=== PATIENT | male | born 1955 | race Caucasian/White ===

== ENCOUNTER 2019-07-23 07:24 | Outpatient (CLI) | payer BC, SELFPAY ==
--- NOTE | 2019-07-23 07:27 | ECG_ITS ---
NAME OF STUDY: LEXISCAN SESTAMIBI STRESS TEST INDICATION: CAD, PROCEDURE: At the baseline, the EKG revealed normal sinus rhythm with frequent supraventricular ectopics/premature atrial contractions. The baseline blood pressure was 144/84 mm Hg with a heart rate of 65 beats/min. Lexiscan was infused over a period of 20 seconds. A total of 0.4 milligrams of Lexiscan was infused. The stress phase was continued for a total of 5 minutes. Heart rate at the end of the stress phase was 75 with a blood pressure 135/79. The EKG at the peak infusion revealed no significant changes except for the disappearance of the supraventricular ectopics Sestamibi was injected 20 seconds after the Lexiscan infusion. Blood pressure at the end of the recovery phase was 136/66 with a heart rate of 81 per minute. CONCLUSION: 1. No significant EKG changes with the LexiScan infusion 2. No LexiScan induced chest pain or cardiac arrhythmia 3. Normal blood pressure and heart rate response 4. Sestamibi/sestamibi perfusion scan pending; see separate report. Electronically Signed On 07-24-2019 17:01:16 SENIOR CLINICAL DATA COORDINATOR by Ernesto Hernadez M.D. [id number]
--- NOTE | 2019-07-23 07:27 | NMCV_ITS ---
NM MIBI/MIBI Stress/Rest [id number] Stevo Covington Age: 64 Gender: M : 1955 Exam Date: 07/23/2019 08:14 Ordering Phys: Eduardo Coffman MD Technologist: JG Gupta Exam Location: [facility] Indications: Coronary artery calcification STRESS TEST Please see separate stress test report in [facility] for full findings IMAGE PROTOCOL Rest/Stress 1 Lexiscan Day Radiopharmaceutical Dose (mCi) Administration Site Administered by Rest: Tc-99m 10.6 IV JG Rahman Sestamibi Stress:Tc-99m 31.4 IV JG Gupta Sestamiketan Rest: 23-Jul-2019 60 Discovery 630 Stress: 23-Jul-2019 60 Discovery 630 0.4mg Lexiscan. Images obtained in supine and prone position. SPECT RESULTS Technical Quality: Good Raw Data Analysis: Normal Image Corrections: No attenuation or motion correction applied Summed Stress Score: 0 Summed Rest Score: 3 Summed Difference Score: 0 PERFUSION FINDINGS SPECT images demonstrate homogeneous tracer distribution throughout the myocardium. FUNCTIONAL RESULTS (calculated via Gated SPECT) Stress Image LV EF (%): 65 Stress EDV (mL):115 TID: 0.99 Stress ESV (mL):40 Rest Image LV EF (%): 65 FUNCTIONAL FINDINGS: There is normal left ventricular systolic function. IMPRESSIONS Myocardial perfusion imaging is normal and low probability for obstructive coronary artery disease. EKG segment will be documented separately. Clay Pruitt MD (Electronically Signed) Final Date: 23 July 2019 13:24 S
[2019-07-23 07:48] VITALS: BMI 35.5
[2019-07-23] MEDS: regadenoson 0.4 Mg/5 ml Syringe IVP (09:50)
[2019-07-23 10:11] VITALS: BP 139/87; PULSE 70
== END 2019-07-23 07:25 | disposition home or self-care (01) ==
LOC: CDL 07:25
PROVIDERS: Family Provider Family Medicine; Visit Provider Family Medicine
DX: I25.10 Atherosclerotic heart disease of native coronary artery without angina pectoris (principal)
CPT/HCPCS: 78452; 93017; A9500; J2785

== ENCOUNTER → 2019-09-27 08:03 | Outpatient (BNVA) | payer BC, SELFPAY | PROVIDERS: Family Provider Family Medicine; PCP Family Medicine; Visit Provider Urology | DX: N41.9 Inflammatory disease of prostate, unspecified (principal); Z12.5 Encounter for screening for malignant neoplasm of prostate; N39.9 Disorder of urinary system, unspecified | CPT/HCPCS: 81001 ==

== ENCOUNTER 2020-06-13 08:21 | Outpatient (CLI) | payer BC, SELFPAY ==
--- NOTE | 2020-06-13 08:40 | CT_ITS ---
WS: [id number] CTA THORACIC AORTA WITH AND WITHOUT CONTRAST. 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 After noncontrast imaging is performed, CT angiogram is performed during injection of Omnipaque 350; 95 mL IV.. Sagittal and c oronal reconstructions, sagittal and coronal MIP imaging is submitted. All CT scans at [facility] use at least one of these dose optimization techniques: automated exposure control; mA and/o r kV adjustment per patient size (includes targeted exams where dose is matched to clinical indicatio n); or iterative reconstruction. DLP: 1477.32 mGycm COMPARISON: 06/17/2019 Very mild dilatation of the thoracic aorta and mild atherosclerotic plaque. Maximum ascending aortic diameter is 4.4 cm which is not changed. Normal-sized descending thoracic aorta 2.7 cm. Normal size p ulmonary artery. Small amount of calcified plaque at the origins of the great vessels. Coronary artery calcification a nd mitral annular valve plane calcifications are identified. Mild enlargement of the heart chambers. No pericardial or pleural effusions. Stable mediastinal and hilar lymph nodes measuring up to 12 mm w ith no increase in size. Benign calcified nodules in the lungs from granulomatous disease. No pneumonia. No pleural effusion. Small hiatal hernia. No adrenal mass. Mild increase in thoracic kyphosis. Moderate spondylitic changes in the thoracic spine with no fractu re or bone destruction. CT/CT angio chest [id number] IMPRESSION: 1. Stable mild dilatation of the ascending thoracic aorta with a maximum diame ter 4.4 cm. 2. Mild atherosclerotic plaque within the aorta and [place] coronary arteries. 3. Small hiatal hernia. 4. No interval change since 06/17/2019.
[2020-06-13 09:01] LABS: Blood Urea Nitrogen 12 mg/dL (8-23)
[2020-06-13] MEDS: iohexol 350 mg/mL 100 mL Btl IV (09:14)
== END 2020-06-13 08:22 | disposition home or self-care (01) ==
LOC: RADWPI 08:28
PROVIDERS: PCP Family Medicine; Visit Provider Family Medicine
DX: I71.2 Thoracic aortic aneurysm, without rupture (principal); K44.9 Diaphragmatic hernia without obstruction or gangrene
CPT/HCPCS: 71275; 82565; 84520; Q9967

== ENCOUNTER 2020-07-23 12:29 | Emergency (ER) | payer MEDICARE, SELFPAY ==
[2020-07-23] VITALS (7 sets, daily range): BP systolic 129–151; BP diastolic 65–90; PULSE 83–98; RESP 16–24; TEMP 36.5–36.6; O2SAT 84–97; BMI 37.3
--- NOTE | 2020-07-23 13:09 | XRR_ITS ---
PROCEDURE INFORMATION: Exam: XR Chest, 1 View Exam date and time: 07/23/2020 1:16 PM Age: 65 years old Clinical indication: Shortness of breath; Additional info: Shortness of breath TECHNIQUE: Imaging protocol: XR of the chest Views: Frontal portable upright view of the chest. COMPARISON: CT angio chest [id number] 06/13/2020 9:05 AM FINDINGS: Lungs: Mild patchy bilateral pulmonary infiltrates predominating in the lateral left mid-lower lung zone and central right lung base. The pulmonary vasculature is normal. Left lower lobe calcified pulmonary parenchymal granuloma. Pleural space: No pleural effusion. No pneumothorax. Heart/Mediastinum: The heart is normal in size and contour. Mediastinum: Stable. Vasculature: Mild aortic arch atherosclerotic calcification without ectasia. Bones/joints: Stable. XR/XR chest 1V portable [id number] IMPRESSION: Mild patchy bilateral pulmonary infiltrates. Pneumonitis is difficult to exclude. Clinical correlation is recommended.
[2020-07-23 13:59] LABS: Basophils % 0.3 %; Eosinophils % 0.2 %; Hematocrit 49.1 % (42.0-52.0); Hemoglobin 16.4 g/dL (11.7-16.6); Lymphocytes # 0.6 10^3/uL (0.8-4.8); Lymphocytes % 9.7 %; Mean Corpuscular HGB Conc 33.4 g/dL (30.0-36.0); Mean Corpuscular Hemoglobin 31.8 pg (28.0-34.0); Mean Corpuscular Volume 95.2 fL (80-94); Mean Platelet Volume 11.3 fL (7.4-10.4); Monocytes # 0.3 10^3/uL (0.2-0.9); Monocytes % 4.3 %; Neutrophils # 5.32 10^3/uL (1.8-7.7); Nucleated Red Blood Cells % 0 %; Platelet Count 161 10^3/cmm (130-400); Red Blood Count 5.16 10^6/uL (4.1-5.3); Red Cell Distribution Width 13.5 % (12.1-15.1); White Blood Count 6.3 10^3/uL (4.0-10.0)
--- NOTE | 2020-07-23 14:13 | ED_ITS ---
HPI - SOB/Dyspnea General: Chief Complaint: Shortness of Breath/Dyspnea Stated Complaint: SOB/ Weakness/Back pain Time Seen by Provider: 07/23/20 13:09 Source: patient, family and old records reviewed Mode of arrival: ambulatory History of Present Illness: HPI Narrative: 65-year-old male presenting with complaints of progressive shortness of breath, dyspnea on exertion, and back pain over the past several days. He has been sick with COVID-19 since 07/10/2020, but has started to feel better up until several days ago. He had been taking oral steroids, which she thinks helped, and once he finished them, his symptoms got worse again. He has frequent dry cough, pain with deep inspiration. He is no longer having fevers. No nausea or vomiting. He does have a history of asthma/COPD. He is not on home oxygen. He has been using albuterol breathing treatments several times daily with little improvement. MD elicited complaint: shortness of breath, cough, pain with inspiration and chest pain Pertinent past history: COPD and asthma Context: recent illness Timing: progressively worsening Severity: moderate Exacerbating factors: exertion, coughing and inspiration Associated symptoms: Reports chest congestion, diaphoresis and dizziness; Deny abdominal pain, chest pain, fever(s), hemoptysis, lightheadedness, nausea or vomiting Review of Systems General: Reports: 10 or more systems reviewed and unremarkable except in HPI and below Const: Reports: body aches, change in appetite, fatigue, malaise and diaphoresis; Denies: fever(s) or chills Eyes: Denies: change in vision, blurry vision or eye discharge ENMT: Denies: hoarseness or mouth pain Card: Denies: chest pain, irregular heart rhythm, edema, swelling of feet/ankles or lightheadedness Resp: Reports: dyspnea, non-productive cough, pain on inspiration and chest congestion; Denies: hemoptysis GI: Denies: abdominal pain, nausea, vomiting, diarrhea or constipation : Denies: difficulty urinating, dysuria or urinary frequency Musc: Reports: back pain Skin/Breast: Denies: rash, pruritus or erythema Neuro: Reports: dizziness; Denies: headache(s) Yazan/Lymph: Denies: easy bruising, easy bleeding or petechiae PFS ED PFSH: Family History Mother CAD (coronary artery disease) Father , at age 87 No problems noted. Other Hypercholesteremia Social History Smoking and tobacco status: never smoked Alcohol intake: current Alcohol intake frequency: holidays/special occasions only Marital status: Current occupational status: retired History of recent travel: Yes ([place]) Physical Exam Const: COMMON NORMALS: no acute distress, patient oriented x3 and alert GENERAL APPEARANCE: cooperative and anxious; not in distress, not lethargic and not ill appearing NUTRITIONAL APPEARANCE: obese morbidly obese ORIENTATION/CONSCIOUSNESS: Yes oriented to person and Yes oriented to place; not lethargic HENMT: COMMON NORMALS: normocephalic and atraumatic HEAD & SCALP: normocephalic and atraumatic FACE & SINUS: normal facial exam and face symmetric Eye: COMMON NORMALS: Equal, round and reactive pupils present, EOMs intact bilaterally, conjunctivae normal and no scleral icterus CONJUNCTIVA: Yes conjunctivae normal PUPIL: Yes Equal, round and reactive pupils present Lymph: LYMPHATIC: no lymphadenopathy noted Chest: COMMONS NORMALS: normal inspection of the chest Resp: COMMON NORMALS: normal respiratory effort (While at rest, laying down. ) EFFORT & INSPECTION: No able to speak in complete sentences, Yes tachypneic, Yes labored and Yes Actively coughing AUSCULTATION: crackles Cardio: COMMON NORMALS: regular rate, regular rhythm, S1 normal heart sound present and S2 normal heart sound present JUGULAR VENOUS DISTENTION: no JVD RATE: regular rate RHYTHM: regular rhythm HEART SOUNDS: S1 normal heart sound present and S2 normal heart sound present GI: COMMON NORMALS: Soft to palpation INSPECTION: No Abdominal wall edema and No Anasarca PALPATION: Yes Soft to palpation, No Tenderness to palpation present (GI), No Guarding due to palpation present (GI) and No Rigid due to palpation Extremity: GENERAL: Yes normal exam except as noted, No clubbing, No cyanosis, No deformity and No edema Neuro: COMMON NORMALS: patient oriented x3 and CN's II-XII intact bilaterally SENSORIUM/ORIENTATION: Yes alert, Yes oriented to person, Yes oriented to place and No lethargic Skin: COMMON NORMALS: no rashes or lesions noted, no wounds, turgor normal, no jaundice and no petechiae GENERAL SKIN EXAM: no rashes or lesions noted and turgor normal Course Vital Signs: Vital signs: Vital Signs Temperature 97.7 F 07/23/20 13:09 Pulse Rate 98 07/23/20 16:15 Respiratory Rate 17 07/23/20 16:15 Blood Pressure 129/65 07/23/20 16:15 Pulse Oximetry 84 L 07/23/20 17:24 MDM - SOB/Dyspnea MDM Narrative: Medical decision making narrative: 65-year-old male with Covid pneumonia, approximately 2 weeks since onset of symptoms, still having significant dyspnea. DDx :acute PE, CHF, secondary bacterial infection, respiratory failure with hypoxia, ARDS, CT negative for acute PE. CRP elevated, CBC normal. Evaluated by RT, he does qualify for home O2; 3 L nasal cannula at rest, 4 L with activity. He is already completed a course of steroids, but we will have him take Zithromax to prevent any superimposed bacterial infection. Medical Records: Attestation: I reviewed the patient's medical records. Lab Data: Attestation: I reviewed the patient's lab results. Labs: Lab Results 07/23/20 07/23/20 07/23/20 Range/Units 13:34 13:34 13:34 WBC 6.3 (4.0-10.0) 10^3/ uL RBC 5.16 (4.1-5.3) 10^6/u L Hgb 16.4 (11.7-16.6) g/dL Hct 49.1 (42.0-52.0) % MCV 95.2 H (80-94) fL MCH 31.8 (28.0-34.0) pg MCHC 33.4 (30.0-36.0) g/dL RDW 13.5 (12.1-15.1) % Plt Count 161 (130-400) 10^3/c mm MPV 11.3 H (7.4-10.4) fL Neut % (Auto) 85.0 % Lymph % (Auto) 9.7 % [place] % (Auto) 4.3 % Eos % (Auto) 0.2 % Baso % (Auto) 0.3 % Neut # (Auto) 5.32 (1.8-7.7) 10^3/u L Lymph # (Auto) 0.6 L (0.8-4.8) 10^3/u L [place] # (Auto) 0.3 (0.2-0.9) 10^3/u L Eos # (Auto) 0.0 (0.0-0.8) 10^3/u L Baso # (Auto) 0.0 (0.0-0.1) 10^3/u L Nucleated RBC % (a uto) 0 % Nucleated RBCs # 0.0 /100WBC PT 13.50 (12.1-14.9) SECO NDS INR 1.00 (0.8-1.2) D-Dimer (0-0.59) ug/mIFE U Sodium Cancelled Potassium Cancelled Chloride Cancelled Carbon Dioxide Cancelled Anion Gap Cancelled BUN Cancelled Creatinine Cancelled GFR Calculation Cancelled Glucose Cancelled Calculated Osmolal ity Cancelled Calcium Cancelled Total Bilirubin Cancelled AST Cancelled ALT Cancelled Alkaline Phosphata se Cancelled Troponin T Baselin e C-Reactive Protein Cancelled NT-Pro-B Natriuret Pep Cancelled Total Protein Cancelled Albumin Cancelled Globulin Cancelled Urine Color (Yellow) Urine Appearance (CLEAR) Urine pH (5-7) Ur Specific Gravit y (1.005-1.030) Urine Protein (Negative) Urine Glucose (UA) (Normal) Urine Ketones (Negative) Urine Blood (Negative) Urine Nitrate (Negative) Urine Bilirubin (Negative) Urine Urobilinogen (Negative) mg/dL Ur Leukocyte Carrie ase (Negative) Urine RBC (0-2) /hpf Urine WBC (0-5) /hpf Ur Squamous Epith Cells (0-5) /hpf Amorphous Sediment Urine Bacteria (NONE) /hpf Urine Mucus /hpf 07/23/20 07/23/20 07/23/20 Range/Units 13:34 13:34 14:44 WBC (4.0-10.0) 10^3/ uL RBC (4.1-5.3) 10^6/u L Hgb (11.7-16.6) g/dL Hct (42.0-52.0) % MCV (80-94) fL MCH (28.0-34.0) pg MCHC (30.0-36.0) g/dL RDW (12.1-15.1) % Plt Count (130-400) 10^3/c mm MPV (7.4-10.4) fL Neut % (Auto) % Lymph % (Auto) % [place] % (Auto) % Eos % (Auto) % Baso % (Auto) % Neut # (Auto) (1.8-7.7) 10^3/u L Lymph # (Auto) (0.8-4.8) 10^3/u L [place] # (Auto) (0.2-0.9) 10^3/u L Eos # (Auto) (0.0-0.8) 10^3/u L Baso # (Auto) (0.0-0.1) 10^3/u L Nucleated RBC % (a uto) % Nucleated RBCs # /100WBC PT (12.1-14.9) SECO NDS INR (0.8-1.2) D-Dimer 1.84 H (0-0.59) ug/mIFE U Sodium Potassium Chloride Carbon Dioxide Anion Gap BUN Creatinine GFR Calculation Glucose Calculated Osmolal ity Calcium Total Bilirubin AST ALT Alkaline Phosphata se Troponin T Baselin e Cancelled 24 H C-Reactive Protein NT-Pro-B Natriuret Pep Total Protein Albumin Globulin Urine Color (Yellow) Urine Appearance (CLEAR) Urine pH (5-7) Ur Specific Gravit y (1.005-1.030) Urine Protein (Negative) Urine Glucose (UA) (Normal) Urine Ketones (Negative) Urine Blood (Negative) Urine Nitrate (Negative) Urine Bilirubin (Negative) Urine Urobilinogen (Negative) mg/dL Ur Leukocyte Carrie ase (Negative) Urine RBC (0-2) /hpf Urine WBC (0-5) /hpf Ur Squamous Epith Cells (0-5) /hpf Amorphous Sediment Urine Bacteria (NONE) /hpf Urine Mucus /hpf 07/23/20 07/23/20 Range/Units 14:44 14:55 WBC (4.0-10.0) 10^3/ uL RBC (4.1-5.3) 10^6/u L Hgb (11.7-16.6) g/dL Hct (42.0-52.0) % MCV (80-94) fL MCH (28.0-34.0) pg MCHC (30.0-36.0) g/dL RDW (12.1-15.1) % Plt Count (130-400) 10^3/c mm MPV (7.4-10.4) fL Neut % (Auto) % Lymph % (Auto) % [place] % (Auto) % Eos % (Auto) % Baso % (Auto) % Neut # (Auto) (1.8-7.7) 10^3/u L Lymph # (Auto) (0.8-4.8) 10^3/u L [place] # (Auto) (0.2-0.9) 10^3/u L Eos # (Auto) (0.0-0.8) 10^3/u L Baso # (Auto) (0.0-0.1) 10^3/u L Nucleated RBC % (a uto) % Nucleated RBCs # /100WBC PT (12.1-14.9) SECO NDS INR (0.8-1.2) D-Dimer (0-0.59) ug/mIFE U Sodium 134 L Potassium 3.8 Chloride 100 Carbon Dioxide 21 L Anion Gap 16.8 BUN 17 Creatinine 0.9 GFR Calculation 84.7 L Glucose 93 Calculated Osmolal ity 279 L Calcium 8.4 L Total Bilirubin 0.6 AST 26 ALT 29 Alkaline Phosphata se 85 Troponin T Baselin e C-Reactive Protein 62.1 H NT-Pro-B Natriuret Pep 150 H Total Protein 6.4 L Albumin 3.6 Globulin 2.8 Urine Color Yellow (Yellow) Urine Appearance Clear (CLEAR) Urine pH 7 (5-7) Ur Specific Gravit y 1.010 (1.005-1.030) Urine Protein Neg (Negative) Urine Glucose (UA) Norm (Normal) Urine Ketones Negative (Negative) Urine Blood Neg (Negative) Urine Nitrate Negative (Negative) Urine Bilirubin Neg (Negative) Urine Urobilinogen 4 H (Negative) mg/dL Ur Leukocyte Carrie ase Negative (Negative) Urine RBC None (0-2) /hpf Urine WBC None (0-5) /hpf Ur Squamous Epith Cells Rare (0-5) /hpf Amorphous Sediment Not Reportable Urine Bacteria Trace (NONE) /hpf Urine Mucus 2+ /hpf Discharge Plan Discharge Patient Disposition: Home Clinical Impression: Pneumonia due to 2019 novel coronavirus, Hypoxemia requiring supplemental oxygen Condition: Stable Prescriptions: New Zithromax Z-Nicanor 250 mg tablet See Rx Instructions .ROUTE .COMPLEX Qty: 6 RF: 0 No Action multivitamin Tablet 1 tab PO DAILY RF: 0 aspirin 81 mg tablet,delayed release (DR/EC) 81 mg PO DAILY RF: 0 quercetin 1,000 mg PO DAILY RF: 0 cetirizine 10 mg capsule 10 mg PO DAILY RF: 0 montelukast [Singulair] 10 mg tablet 10 mg PO DAILY RF: 0 amlodipine 10 mg tablet 10 mg PO DAILY RF: 0 atorvastatin 10 mg tablet 10 mg PO DAILY RF: 0 fluticasone propion-salmeterol [Advair Diskus] 250-50 mcg/dose blister with device 1 inh INHALATION BID RF: 0 monetasone 1 mg nasal BID RF: 0 Discharge Orders: Discharge ED (Routine); Ordered 07/23/20 Ordered By: Minoo Erickson Other Ambulatory Orders: DME: Oxygen (Order) Location: None Selected Ordered By: Minoo Erickson Referrals: Eduardo Coffman Jr, MD [Primary Care Provider] - Discharge Diet: Usual diet Discharge Activity: Increase activity as tolerated and Oxygen as instructed Patient Instructions: Using Oxygen at Home (ED) Activity Restrictions/Additional Instructions: Follow-up with your primary care doctor in the next 3 days. Avoid any unneces alexandre exertion. Rest. Drink plenty of fluids. Return immediately to the ER if you develop worsening difficulty breathing, severe chest pain, dizziness or fainting, or any other concerning symptoms. Coding Level of Care Code ED Silk Folder for Bro Love
[2020-07-23 14:37] LABS: D Dimer 1.84 ug/mIFEU (0-0.59)
--- NOTE | 2020-07-23 14:44 | CTR_ITS ---
PROCEDURE INFORMATION: Exam: CT Angiography Chest With Contrast Exam date and time: 07/23/2020 3:31 PM Age: 65 years old Clinical indication: Shortness of breath; Additional info: SOB, back pain, covid TECHNIQUE: Imaging protocol: Computed tomographic angiography of the chest with intravenous contrast. 3D rendering (Not supervised by radiologist): MIP reconstructed images were created by the technologist. Radiation optimization: All CT scans at this facility use at least one of these dose optimization techniques: automated exposure control; mA and/or kV adjustment per patient size (includes targeted exams where dose is matched to clinical indication); or iterative reconstruction. Contrast material: OMNI 350; Contrast volume: 95 ml; Contrast route: INTRAVENOUS (IV); COMPARISON: CT angio chest [id number] 06/13/2020 9:05 AM RADIATION DOSE METRICS: Total DLP (mGy-cm): 609.1 FINDINGS: Pulmonary arteries: Normal. No pulmonary emboli. Aorta: Moderate aortic arch, branch, and descending thoracic aortic atherosclerotic calcification without ectasia. Thyroid: The partially imaged bilateral thyroid lobes are unremarkable. Lungs: Patchy peripheral rounded and non-rounded pulmonary ground-glass opacities with intralobular septal thickening predominating in the mid-lower lung zones. Right lower lobe calcified pulmonary parenchymal granulomas. Pleural space: No pneumothorax. No pleural effusion. Heart: Dense mitral annular calcification is present. Lymph nodes: Left pulmonary hilar lymph node measuring 17 mm short axis. Subcarinal lymph node measuring 15.3 mm short axis. Right pulmonary hilar lymph node measuring 14.7 mm short axis. Retrocaval/pretracheal lymph node measuring 14.4 mm short axis. Bones/joints: Thoracic spine vertebral body marginal osteophytes are noted at multiple levels. Degenerative disk disease is present at mid-lower thoracic spine disk levels. Soft tissues: Unremarkable. CT/CT angio chest PE protcl [id number] IMPRESSION: 1. Commonly reported imaging features of COVID-19 pneumonia are present. Other processes such as influenza pneumonia and organizing pneumonia, as can be seen with drug toxicity and connective tissue disease, can cause a similar imaging pattern. 2. No pulmonary embolism identified. 3. Mild nonspecific mediastinal and bilateral pulmonary hilar lymphadenopathy. Radiation Dose CTDIVOL = (mGy): DLP = 609.1 (mGy-cm)
[2020-07-23 15:11] LABS: Troponin(5th) Baseline 24 ng/L (0-15)
[2020-07-23 15:16] LABS: Alanine Aminotransferase 29 U/L (0-41); Albumin Level 3.6 g/dL (3.5-5.2); Alkaline Phosphatase 85 IU/L (40-130); Anion Gap 16.8 (5-19); Aspartate Amino Transferase 26 U/L (0-40); Blood Urea Nitrogen 17 mg/dL (8-23); C Reactive Protein 62.1 mg/L (0.0-4.9); Calcium 8.4 mg/dL (8.5-10.5); Carbon Dioxide 21 mmol/L (22-29); Chloride 100 mmol/L (98-107); Globulin 2.8 g/dL (1.3-4.6); Glomerular Filtration Rate 84.7 mL/min (90-130); Glucose 93 mg/dL (65-115); NT Pro B Type Natriuretic Pept 150 pg/mL (0-125); Osmolality Calculated 279 mOsm/kg (285-295); Potassium 3.8 mmol/L (3.5-5.1); Sodium 134 mmol/L (136-145); Total Bilirubin 0.6 mg/dL (0.15-1.2); Total Protein 6.4 g/dL (6.6-8.7)
[2020-07-23 15:32] LABS: Glucose Urine UA Norm (Normal); Protein Urine Neg (Negative); Urine Appearance Clear (CLEAR); Urine Color Yellow (Yellow); pH Urine 7 (5-7)
[2020-07-23 15:33] LABS: Bilirubin Urine Neg (Negative); Blood Urine Neg (Negative); Ketones Urine Negative (Negative); Leukocyte Esterase Urine Negative (Negative); Nitrate Urine Negative (Negative); Urobilinogen Urine 4 mg/dL (Negative)
[2020-07-23 15:35] LABS: Bacteria Urine TRACE /hpf; Mucus Urine 2+ /hpf; Squamous Epithelial Cell Urine RARE /hpf (0-5)
[2020-07-23 15:36] LABS: Add Urine Culture? No
[2020-07-23] MEDS: iohexol 350 mg/mL 100 mL Btl IV (16:04)
--- NOTE | 2020-07-23 19:12 | ECG_ITS ---
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 Measurements Intervals [place] Rate: 83 P: 15 MD: 138 QRS: -21 QRSD: 90 T: 7 QT: 342 QTc: 404 Interpretive Statements SINUS RHYTHM POSSIBLE LEFT ATRIAL ENLARGEMENT [-0.1mV P WAVE IN V1/V2] BORDERLINE LEFT AXIS DEVIATION [QRS AXIS < -20] POSSIBLE RIGHT VENTRICULAR CONDUCTION DELAY [RSR (QR) IN V1/V2] Compared to ECG 03/18/2018 23:28:52 Sinus tachycardia no longer present Incomplete right bundle-branch block no longer present Electronically Signed On 07-24-2020 17:32:33 DIRECTOR INTEGRATED by Rossy Norris M.D. [id number]
== END 2020-07-23 18:56 | disposition home or self-care (01) ==
PROVIDERS: Emergency Provider Family Medicine; PCP Family Medicine
DX: U07.1 COVID-19 (principal); J12.82 Pneumonia due to coronavirus disease 2019; R09.02 Hypoxemia; Z99.81 Dependence on supplemental oxygen; Z79.82 Long term (current) use of aspirin; I70.0 Atherosclerosis of aorta
CPT/HCPCS: 12345; 71045; 71275; 80053; 81001; 83880; 84484; 85025; 85378; 85610; 86140; 93005; 99283; Q9967

== ENCOUNTER 2020-09-13 10:52 | Outpatient (CLI) | payer MEDICARE, SELFPAY ==
--- NOTE | 2020-09-13 10:15 | USCV_ITS ---
Stevo Covington Age: 65 Gender: M : 1955 Exam Date: 09/13/2020 11:07 Ordering Phys: Edu Tirado M.D ([email or web address]) Technologist: Laura Bowen Exam Location: [facility] Indication: AFIB BP: / HR: 84 Rhythm: Sinus Technical Quality: Adequate MEASUREMENTS (Male / Female) Normal Values 2D ECHO LV Diastolic Diameter PLAX 3.1 cm 4.2 - 5.9 / 3.9 - 5.3 cm LV Systolic Diameter PLAX 2.3 cm IVS Diastolic Thickness 1.3 cm 0.6 - 1.0 / 0.6 - 0.9 cm IVS Systolic Thickness 1.4 cm LVPW Diastolic Thickness 2.0 cm 0.6 - 1.0 / 0.6 - 0.9 cm LVPW Systolic Thickness 2.1 cm LVOT Diameter 2.0 cm LV Ejection Fraction 2D Teich 50.9 % LV Ejection Fraction MOD 2C 60.3 % LV Ejection Fraction 2C AL 60.2 % LA Diameter 5.0 cm LA Width 3.7 cm LA Height 5.4 cm RA Width 3.0 cm RA Height 4.5 cm Aorta at Sinotubular Diameter 3.7 cm M-MODE LV Diastolic Diameter MM 6.5 cm 4.2 - 5.9 / 3.9 - 5.3 cm LV Systolic Diameter MM 5.2 cm LV Ejection Fraction MM Teich 40.1 % IVS Diastolic Thickness MM 0.9 cm 0.6 - 1.0 / 0.6 - 0.9 cm IVS Systolic Thickness MM 1.5 cm LVPW Diastolic Thickness MM 1.3 cm 0.6 - 1.0 / 0.6 - 0.9 cm LVPW Systolic Thickness MM 1.6 cm Aortic Annulus Diameter 3.6 cm LA Ao Ratio MM 1.7 MV E Point Septal Separation 0.9 cm DOPPLER AV Peak Velocity 102.7 cm/s LVOT Peak Velocity 91.0 cm/s AV Area Cont Eq vti 2.6 cm squared AV Area Cont Eq pk 2.8 cm squared MV Area PHT 3.3 cm squared Mitral E to A Ratio 3.4 MV E' Velocity 84.0 cm/s Mitral E to MV E' Ratio 13.8 Mitral E to LV E' Lateral Ratio 11.2 Mitral E to LV E' Septal Ratio 18.3 TR Peak Velocity 252.0 cm/s TR Peak Gradient 25.4 mmHg TV Peak E Velocity 65.0 cm/s Right Atrial Pressure 3.0 mmHg Pulmonary Artery Systolic Pressu 28.4 mmHg PV Peak Velocity 45.0 cm/s RV Acceleration Time 0.2 s RV Ejection Time 0.3 s RV AcT/ET 0.5 FINDINGS Left Ventricle Normal left ventricular size. LV systolic function is normal with EF of 55-60%. No regional wall motion abnormalities. Diastolic function is indeterminate because of atrial fibrillation Right Ventricle The right ventricle is normal in size and function. Right Atrium The right atrium is normal in size. Left Atrium The left atrium is mildly enlarged Mitral Valve Structurally normal mitral valve without significant stenosis or prolapse. There is no mitral regurgitation. Aortic Valve Structurally normal aortic valve without significant sclerosis or stenosis. There is mild aortic regurgitation. Tricuspid Valve Structurally normal tricuspid valve without significant stenosis. Mild tricuspid regurgitation is seen. RVSP is 30- 35mmHg. Mild pulmonary hypertension Pulmonic Valve Structurally normal pulmonic valve without significant stenosis. There is no pulmonic regurgitation. Pericardium Normal pericardium without effusion. Aorta Mildly dilated aortic root CONCLUSIONS LV systolic function is normal with EF of 55-60% Diastolic function is indeterminate because of atrial fibrillation Left atrial enlargement Mild aortic regurgitation. Mild tricuspid regurgitation is noted Mild pulmonary hypertension Mildly dilated aortic root. No comparison studies are available Edu Tirado MD (Electronically Signed) Final Date: 19 September 2020 18:16 S
== END 2020-09-13 10:53 | disposition home or self-care (01) ==
LOC: US 10:52
PROVIDERS: PCP Family Medicine; Visit Provider Internal Medicine
DX: I48.91 Unspecified atrial fibrillation (principal); I35.1 Nonrheumatic aortic (valve) insufficiency; I07.1 Rheumatic tricuspid insufficiency; I27.20 Pulmonary hypertension, unspecified
CPT/HCPCS: 93306

== ENCOUNTER → 2020-10-12 09:47 | Outpatient (BNVA) | payer MEDICARE, SELFPAY | PROVIDERS: PCP Family Medicine; Visit Provider Internal Medicine | DX: R06.02 Shortness of breath (principal) | CPT/HCPCS: 87635 ==

== ENCOUNTER → 2020-10-30 11:42 | Outpatient (BNVA) | payer MEDICARE, SELFPAY | PROVIDERS: PCP Family Medicine; Visit Provider Internal Medicine | DX: I48.91 Unspecified atrial fibrillation (principal); Z11.52 Encounter for screening for COVID-19 | CPT/HCPCS: 87635 ==

== ENCOUNTER 2020-11-03 10:56 | Day surgery (SDC) | payer MEDICARE, SELFPAY ==
--- NOTE | 2020-11-03 07:18 | W.PM.OPSFHP ---
Same Day Surgery H&P Indication for Procedure/HPI DATE OF PROCEDURE: November 03, 2020 CHIEF COMPLAINT/INDICATIONFOR SURGICAL PROCEDURE: Atrial gibrillation PREOP DIAGNOSIS: Symptomatic A. fib PLANNED PROCEDRUE: Operation Date: 11/03/20 12:00 Proposed Procedures p CHAD 36780 R06.02(Not Applicable) - Edu Tirado M.D Patient presented for CHAD and CV. Medications/Allergies* Home Medications Medication Instructions Recorded Confirmed Type amlodipine 10 mg tablet 10 mg PO DAILY 09/27/19 11/03/20 History atorvastatin 10 mg tablet 10 mg PO DAILY 09/27/19 11/03/20 History cetirizine 10 mg capsule 10 mg PO DAILY 09/27/19 11/03/20 History fluticasone 250 mcg-salmeterol 50 1 inh INHALATION BID 09/27/19 11/03/20 History mcg/dose blistr powdr for inhalation monetasone NASAL BID 09/27/19 08/23/20 History montelukast 10 mg tablet 10 mg PO DAILY 09/27/19 11/03/20 History multivitamin 1 tab PO DAILY 09/27/19 11/03/20 History albuterol sulfate 90 mcg/actuation 2 puff INHALATION Q6H PRN 08/23/20 11/03/20 History aerosol inhaler Allergies/Adverse Reactions Allergy/AdvReac Type Severity Reaction Status Date / Time sulfamethoxazole Allergy Unknown Verified 09/27/19 07:54 [From Bactrim] trimethoprim [From Bactrim] Allergy Unknown Verified 09/27/19 07:54 Pertinent History/Comorbid Conditions* Medical History (Updated 08/26/20 @ 11:24 by Edu Tirado M.D) Arthropathy of right knee Asthma HTN (hypertension) Hyperlipidemia Lower urinary tract symptoms (LUTS) Prostatitis Ureteral calculus Surgical History (Updated 08/26/20 @ 11:19 by Edu Tirado M.D) H/O arthroscopy of right knee History of back surgery History of back surgery Hx of repair of rotator cuff S/P right rotator cuff repair MASSIVE Family History (Updated 07/23/19 @ 08:06 by Karen Colvin RN) Father, at age 87 CAD (coronary artery disease) Mother Hypercholesteremia Social History Smoking and tobacco status: never smoked Alcohol intake: current Alcohol intake frequency: holidays/special occasions only Marital status: Current occupational status: retired History of recent travel: Yes ([place]) Pertinent Exam Findings alert, oriented x 3, clear to auscultation bilaterally and regular rate & rhythm Recommendations Other (Patient was already on SB on arrival. 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
[2020-11-03 11:37] VITALS: BMI 36.6
--- NOTE | 2020-11-03 11:49 | ANES.PREANE2 ---
Documented by User: Good Mason Jr, CRNA 11/03/20 11:59 Pre-Anesthetic Assessment Pre-Anesthetic Assessment: Height/Weight: Height 1.83 m Weight 122.47 kg Preop Diagnosis: Afib Proposed Procedure: Operation Date: 11/03/20 12:00 Proposed Procedures p CHAD 28730 R06.02(Not Applicable) - Edu Tirado M.D Familial anesthetic complications: father was long time to wake and thought allergy to SUX Was Beta Federico taken within 24 hours: Yes Was Clonidine taken within 24 hours: N/A Last Intake: 22:00 Social: Social History: No alcohol and No tobacco Exam: Pre-Anes Outpt Exam: alert, oriented x 3, clear to auscultation bilaterally and regular rate & rhythm Airway: Submandibular: WNL Cervical ROM: WNL MP: 2 Dentition: Full Pulmonary: Pulmonary: Asthma and SOB (since COVID end june) CV/HEM: CV/HEM: Afib and HTN Comments: Pt with AAA thats being watched. Told OK in June 2020 : : None reported Hepatic: Hepatic: None reported GI: GI: GERD (controlled with OTC meds) Metabolic: Metabolic: Morbid obesity Musc/skel: Musc/skel: Lower Back Pain and OA/DJD Neuropsych: Neuropsych: None reported Anesthetic Plan: ASA status: 3 Anesthesia: MAC Risk of > 500 ml blood loss (7ml/kg in children): No PFSH Anesthesia PFSH: Medical History Arthropathy of right knee Asthma HTN (hypertension) Hyperlipidemia Lower urinary tract symptoms (LUTS) Prostatitis Ureteral calculus Surgical History H/O arthroscopy of right knee History of back surgery History of back surgery Hx of repair of rotator cuff S/P right rotator cuff repair MASSIVE Family History Mother CAD (coronary artery disease) Father , at age 87 No problems noted. Other Hypercholesteremia Social History Smoking and tobacco status: never smoked Alcohol intake: current Alcohol intake frequency: holidays/special occasions only Marital status: Current occupational status: retired History of recent travel: Yes ([place]) Data Anesthesia Cardiac Studies: No Data to Display Documented by User: José Miguel Zamarripa 11/03/20 16:26 PFSH Anesthesia PFSH: Medical History Arthropathy of right knee Asthma HTN (hypertension) Hyperlipidemia Lower urinary tract symptoms (LUTS) Prostatitis Ureteral calculus Surgical History H/O arthroscopy of right knee History of back surgery History of back surgery Hx of repair of rotator cuff S/P right rotator cuff repair MASSIVE Family History Mother CAD (coronary artery disease) Father , at age 87 No problems noted. Other Hypercholesteremia Social History Smoking and tobacco status: never smoked Alcohol intake: current Alcohol intake frequency: holidays/special occasions only Marital status: Current occupational status: retired History of recent travel: Yes ([place]) Data Anesthesia Cardiac Studies: No Data to Display
--- NOTE | 2020-11-03 11:55 | ECG_ITS ---
[facility] Test Date: 2020-11-03 Pat Name: Stevo Covington Department: Room: Gender: Male Traveling Auditor: : 1955 Requested By: Rossy Norris Order Number: [id number] Anita MD: Rossy Norris M.D. Measurements Intervals [place] Rate: 46 P: 4 OK: 190 QRS: -20 QRSD: 97 T: -2 QT: 469 QTc: 412 Interpretive Statements SINUS BRADYCARDIA POSSIBLE RIGHT VENTRICULAR CONDUCTION DELAY [RSR (QR) IN V1/V2] Compared to ECG 07/23/2020 13:30:30 Sinus rhythm no longer present Electronically Signed On 11-04-2020 5:18:16 CDT by Rossy Norris M.D. [id number]
--- NOTE | 2020-11-03 16:25 | ANE.PACU2 ---
Inpatient post-anesthesia follow up: Airway intact: Yes Vital signs: Temperature Pulse Rate Respiratory Rate Blood Pressure Pulse Oximetry Oxygen Delivery Me thod Oxygen Flow Rate Fraction of Inspir ed Oxygen Hydration adequate: Yes Nausea and vomiting: No Pain level: 1 Mental status: Baseline
== END 2020-11-03 12:59 | disposition home or self-care (01) ==
PROVIDERS: PCP Family Medicine; Visit Provider Internal Medicine
PROC: (CPT 93312; principal; 2020-11-03 12:00)
DX: I48.91 Unspecified atrial fibrillation (principal); I10 Essential (primary) hypertension; E78.5 Hyperlipidemia, unspecified; J45.909 Unspecified asthma, uncomplicated; Z86.16 Personal history of COVID-19; E66.01 Morbid (severe) obesity due to excess calories; Z68.36 Body mass index [BMI] 36.0-36.9, adult; M19.90 Unspecified osteoarthritis, unspecified site; Z82.49 Family history of ischemic heart disease and other diseases of the circulatory system
CPT/HCPCS: 93005

== ENCOUNTER → 2021-10-01 13:43 | Outpatient (BNVA) | payer MEDICARE, SELFPAY | PROVIDERS: PCP Family Medicine; Visit Provider Urology | DX: N41.9 Inflammatory disease of prostate, unspecified (principal); Z12.5 Encounter for screening for malignant neoplasm of prostate; N41.1 Chronic prostatitis; Z87.448 Personal history of other diseases of urinary system | CPT/HCPCS: 81003; G0103 ==

== ENCOUNTER 2021-12-31 07:54 | Outpatient (CLI) | payer MEDICARE, SELFPAY ==
--- NOTE | 2021-12-31 08:06 | CT_ITS ---
WS: [id number] CTA THORACIC TECHNIQUE: Contrast enhanced CTA of the thoracic aorta with coronal and sagittal reformatted images a nd maximum intensity projection (MIP) images. 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 FINDINGS: Stable mild dilatation of the ascending thoracic aorta measuring 4.4 cm in maximum dimension. This is unchanged from the prior examinations. Mild aortic calcification. Coronary calcification. Proximal m ain pulmonary arteries are normal. A few prominent anterior mediastinal and peribronchial lymph nodes unchanged. No axillary lymphadenopathy. Adrenal glands are normal. Small esophageal hiatal hernia. Fatty atrophy of the pancreas. Celiac and SMA are patent in the upper abdomen. Slight bibasilar atelectasis. No acute pulmonary infiltrates. A few incidental calcified granulomas. Previously described pulmonary infiltrates have resolved. Hypertrophic changes thoracic spine. Mild t horacic kyphosis. CT/CT angio chest [id number] IMPRESSION: 1. Stable mild dilatation of the ascending thoracic aorta measuring 4.4 cm unc hanged. 2. Mild aortic calcification. Mild coronary calcification. 3. Small esophageal hiatal hernia. 4. No acute pulmonary infiltrates today.
[2021-12-31] MEDS: iohexol 350 mg/mL 100 mL Btl IV (08:46)
== END 2021-12-31 07:55 | disposition home or self-care (01) ==
LOC: RAD 07:55
PROVIDERS: PCP Family Medicine; Visit Provider Nurse Practitioner Family
DX: I71.2 Thoracic aortic aneurysm, without rupture (principal); I10 Essential (primary) hypertension; I48.91 Unspecified atrial fibrillation
CPT/HCPCS: 71275

== ENCOUNTER 2022-06-12 11:22 | Outpatient (CLI) | payer MEDICARE, SELFPAY ==
--- NOTE | 2022-06-12 11:36 | XR_ITS ---
WS: [id number] XR shoulder LT min 2V* [id number] REASON FOR EXAM: STRAIN OF MUSCLE,FASCIA TENDON OF OTHER PARTS OF BICEPS FINDINGS: Moderate narrowing of the acromioclavicular joint with subchondral sclerosis and marginal osteophytos is. Difficult to evaluate the glenohumeral joint space on this examination. It appears to be mildly narro wed. There is mild subchondral sclerosis in the glenoid and small osteophytosis of the humeral head. There is fairly significant subchondral sclerosis and cystic change in the greater tuberosity of jarod delmi. No fracture or focal bone lesion of the clavicle scapula or humerus. No soft tissue abnormality. XR/XR shoulder LT min 2V* [id number] IMPRESSION: Moderate osteoarthritis of the acromioclavicular joint. Mild osteoarthritis of the glenohumeral joint. Significant rotator cuff cuff tendon arthropathy.
== END 2022-06-12 11:23 | disposition home or self-care (01) ==
PROVIDERS: PCP Nurse Practitioner Family; Visit Provider Nurse Practitioner Family
DX: S46.912A Strain of unspecified muscle, fascia and tendon at shoulder and upper arm level, left arm, initial encounter (principal); X58.XXXA Exposure to other specified factors, initial encounter; M19.012 Primary osteoarthritis, left shoulder
CPT/HCPCS: 73030

== ENCOUNTER → 2022-07-02 14:13 | Outpatient (BNVA) | payer MEDICARE, SELFPAY | PROVIDERS: PCP Nurse Practitioner Family; Visit Provider Internal Medicine | DX: I48.91 Unspecified atrial fibrillation (principal); Z79.01 Long term (current) use of anticoagulants; I10 Essential (primary) hypertension; E78.5 Hyperlipidemia, unspecified; F17.220 Nicotine dependence, chewing tobacco, uncomplicated | CPT/HCPCS: 99214 ==

== ENCOUNTER 2022-12-16 06:14 | Outpatient (CLI) | payer MEDICARE, SELFPAY ==
--- NOTE | 2022-12-16 06:22 | CT_ITS ---
WS: [id number] CTA THORACIC AORTA WITH AND WITHOUT CONTRAST HISTORY: THORACIC AORTIC ANEURYSM, WITHOUT RUPTURE TECHNIQUE: CT imaging of the thorax is performed with and without contrast. After noncontrast imaging is performed, CT angiogram is performed during injection of Omnipaque 350; 100 mL IV.. Sagittal and coronal reconstructions, sagittal and coronal MIP imaging is submitted. All CT scans at [facility] use at least one of these dose optimization techniques: automated exposure control; mA and/or k V adjustment per patient size (includes targeted exams where dose is matched to clinical indication); or iterative reconstruction. DLP: 1179.02 mGy.cm COMPARISON: 12/31/2021, 12/20/2016, 08/08/2016 Mild ectasia and prominence of the ascending aorta to 4.5 cm which is very similar to the prior study . Normal tapering through the descending aorta. Scattered mild atherosclerotic calcifications. Modera te diffuse coronary artery calcifications. Marked calcification along the mitral annular valve plane and also along the intraventricular septum. No noncalcified pulmonary mass or nodule. Mild enlargement of the heart. No pericardial or pleural effusions. No mediastinal or hilar adenopath y. Small hiatal hernia. Partially visualized low-attenuation mass from the posterior lateral LEFT kid malina. Noted to be a cyst on the prior study from 2017. No adrenal mass. Moderate increase in thoracic kyphosis with spondylosis. CT/CT angio chest [id number] IMPRESSION: 1. Long-term stability of very minimal dilatation of the proximal ascending th oracic aorta to 4.5 cm. No change since 2017. 2. Mild enlargement of the heart. Moderate coronary artery calcifications. 3. No pulmonary mass.
[2022-12-16 06:59] LABS: Blood Urea Nitrogen 18 mg/dL (8-23); Glomerular Filtration Rate 60.4 mL/min (90-130)
[2022-12-16] MEDS: iohexol 350 mg/mL 500 mL Btl (per mL) IV (07:16)
== END 2022-12-16 06:15 | disposition home or self-care (01) ==
PROVIDERS: Radiology Neuroradiology; PCP Nurse Practitioner Family; Visit Provider Nurse Practitioner Family
DX: I71.20 Thoracic aortic aneurysm, without rupture, unspecified (principal); I25.10 Atherosclerotic heart disease of native coronary artery without angina pectoris; I51.7 Cardiomegaly
CPT/HCPCS: 71275; 82565; 84520; Q9967

== ENCOUNTER 2022-12-29 08:46 | Emergency (ER) | payer MEDICARE, SELFPAY ==
[2022-12-29 09:01] VITALS: BP 118/74; PULSE 54; RESP 17; TEMP 36.5; O2SAT 97; BMI 38.0
--- NOTE | 2022-12-29 09:08 | ED_ITS ---
HPI - Extremity Problem General: Chief complaint: Extremity Injury, Lower Stated complaint: pain lower rt back leg & side Time Seen by Provider: 12/29/22 08:53 History of Present Illness: Mr. Covington is a 67-year-old gentleman presenting to the emergency department for atraumatic right leg pain. He endorses pain onset without known specific provoking event approximately 1 week ago. Lateral thigh worse with ambulation and movement. He reports a weird tingling numbness type pain. Denies distal radiation or associated back pain. No missed doses of medication including Eliquis. No other specific changes in health, exacerbating, or alleviating factors identified. Onset (ago): day(s) Pain Consistency: constant Quality: burning, aching and other Radiation: none Relieving factors: nothing Exacerbating factors: weight bearing Associated symptoms: Reports no associated symptoms Review of Systems General: Reports: 10 or more systems reviewed and unremarkable except in HPI and below PFSH ED PFSH: Medical History Arthropathy of right knee Asthma HTN (hypertension) Hyperlipidemia Lower urinary tract symptoms (LUTS) Prostatitis Ureteral calculus Surgical History H/O arthroscopy of right knee History of back surgery History of back surgery Hx of repair of rotator cuff S/P right rotator cuff repair MASSIVE Family History Mother CAD (coronary artery disease) Father , at age 87 No problems noted. Other Hypercholesteremia Social History Smoking and tobacco status: current every day smoker smokeless tobacco Smokeless tobacco user: chewing tobacco Alcohol intake: current Alcohol intake frequency: holidays/special occasions only Alcohol type: beer Substance/Drug Use: never Marital status: Current occupational status: retired Physical Exam Const: COMMON NORMALS: alert GENERAL APPEARANCE: cooperative and well developed HENMT: COMMON NORMALS: normocephalic and atraumatic HEAD & SCALP: normocephalic and atraumatic Eye: COMMON NORMALS: conjunctivae normal CONJUNCTIVA: Yes conjunctivae normal SCLERA: sclerae normal Neck/C-Spine: COMMON NORMALS: supple GENERAL: Yes trachea midline Resp: COMMON NORMALS: clear to auscultation bilaterally EFFORT & INSPECTION: Yes able to speak in complete sentences AUSCULTATION: clear to auscultation bilaterally Cardio: COMMON NORMALS: regular rate and regular rhythm RATE: regular rate RHYTHM: regular rhythm GI: COMMON NORMALS: Soft to palpation PALPATION: Yes Soft to palpation and No Tenderness to palpation present (GI) : COMMON NORMALS: Yes no CVA tenderness BLADDER/KIDNEY EXAM: Yes no CVA tenderness Back/Pelvis: COMMON NORMALS: no CVA tenderness and no thoracic nor lumbar tenderness Extremity: NARRATIVE EXTREMITY EXAM: Essentially unremarkable exam of the right lower extremity. Mild tenderness palpation laterally. No palpable fluid collection or skin changes. No tenderness with internal or external rotation of the hip joint. No tenderness of the knee. Distal CMS is intact with normal DP/PT pulses. No asymmetric swelling. GENERAL: Yes normal exam except as noted and No edema Neuro: COMMON NORMALS: moves all extremities SENSORIUM/ORIENTATION: Yes alert and No Orientation impaired Psych: COMMON NORMALS: mental status grossly normal and Normal thought process present THOUGHT PROCESS: Normal thought process present Course Vital Signs: Vital signs: Vital Signs Temperature 97.7 F 12/29/22 09:01 Pulse Rate 60 12/29/22 10:10 Respiratory Rate 16 12/29/22 10:10 Blood Pressure 127/74 12/29/22 10:10 Pulse Oximetry 97 12/29/22 10:10 Oxygen Delivery Me thod Room Air 12/29/22 10:10 MDM - Extremity (Nontraumatic) Medical Decision Making 67-year-old gentleman presenting with right hip pain. Exam as above. Patient is nontoxic. Given clinical exam no indication for laboratory studies at this time. Imaging notes no acute fracture, patient does have degenerative changes. No evidence of septic joint on exam. Low suspicion based on clinical history. Patient feels improved with analgesia. Distribution of symptoms as well as description and clinical history is likely secondary to lateral femoral cutaneous nerve compression. The results of ED evaluation were discussed with the patient including prescriptions and/or symptomatic cares (if applicable) including appropriate and responsible use, followup plan, and return precautions. The patient verbalized understanding and felt safe for discharge. Medical Records I reviewed the patient's medical records. Lab Data I reviewed the patient's lab results. Radiology Impressions Femur X-Ray 12/29/22 09:17 IMPRESSION: Degenerative changes right hip joint and right knee. No acute bony abnormalities. 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 Condition: Stable Prescriptions: New oxycodone 5 mg tablet 5 mg PO Q4H PRN (Reason: pain) Qty: 10 0RF No Action multivitamin Tablet 1 tab PO DAILY cetirizine 10 mg capsule 10 mg PO DAILY montelukast [Singulair] 10 mg tablet 10 mg PO DAILY amlodipine 10 mg tablet 10 mg PO DAILY atorvastatin 10 mg tablet 10 mg PO DAILY fluticasone propion-salmeterol [Advair Diskus] 250-50 mcg/dose blister with device 1 inh INHALATION BID monetasone 1 mg nasal BID PRN albuterol sulfate [Proventil HFA] 90 mcg/actuation HFA aerosol inhaler 2 puff inhalation Q6H PRN (Reason: Shortness Of Breath) Eliquis 5 mg tablet 5 mg PO BID Qty: 60 3RF amiodarone 200 mg tablet 200 mg PO DAILY Qty: 90 3RF hydrochlorothiazide 12.5 mg tablet 12.5 mg PO DAILY Qty: 90 3RF metoprolol tartrate 25 mg tablet 12.5 mg PO BID Qty: 180 3RF ciprofloxacin HCl 500 mg tablet 500 mg PO BID Qty: 60 6RF Discharge Orders: Discharge ED (Routine); Ordered 12/29/22 Ordered By: Edmundo Morfin Referrals: Vivian Hraper NP [Primary Care Provider] - Discharge Diet: Usual diet Discharge Activity: Increase activity as tolerated Patient Instructions: Meralgia Paresthetica (ED), Opioid Safety Activity Restrictions/Additional Instructions: Thank you for visiting the emergency department. You were seen and evaluated for thigh pain. The most likely cause of your symptoms is related to nerve compression/irritation. You may use [id number] medications such as acetaminophen and ibuprofen for pain however please do not exceed the daily recommended dosage as listed on the packaging and please keep in mind that many namebrand medications contain the same active ingredients. Please avoid these medications if previously instructed to do so by another physician due to other underlying medical condition. Please return to gentle activity. I will prescribe oxycodone for pain uncontrolled by [id number] medications. Please follow-up with your primary care provider. You may require orthopedic follow-up if symptoms persist. 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
[2022-12-29 09:11] VITALS: BP 132/81; PULSE 54; RESP 14; O2SAT 97
--- NOTE | 2022-12-29 09:17 | XRR_ITS ---
PROCEDURE INFORMATION: Exam: XR Right Femur Exam date and time: 12/29/2022 9:33 AM Age: 67 years old Clinical indication: Pain; Thigh; Right; Additional info: Lateral thigh pain TECHNIQUE: Imaging protocol: Radiologic exam of the right femur. Views: 2 views. COMPARISON: No relevant prior studies available. FINDINGS: Bones/joints: Mild degenerative changes right hip joint and moderate degenerative changes medial knee compartment. Osseous structures are otherwise unremarkable. No fracture deformity or underlying bone lesion detected. Soft tissues: Unremarkable. XR/XR femur RT min 2V* [id number] IMPRESSION: Degenerative changes right hip joint and right knee. No acute bony abnormalities.
[2022-12-29 09:24] VITALS: RESP 14; O2SAT 96
[2022-12-29] MEDS: morphine 4 mg/mL SDV 1 mL IM (09:24)
[2022-12-29] MEDS: acetaminophen 500 mg Tablet 1000 MG PO (09:25)
[2022-12-29] MEDS: methocarbamol 750 mg Tablet PO (09:25)
[2022-12-29 10:10] VITALS: BP 127/74; PULSE 60; RESP 16; O2SAT 97
== END 2022-12-29 10:19 | disposition home or self-care (01) ==
PROVIDERS: Emergency Provider Emergency Medicine; PCP Nurse Practitioner Family
DX: M79.651 Pain in right thigh (principal); G57.11 Meralgia paresthetica, right lower limb; Z79.01 Long term (current) use of anticoagulants; F17.220 Nicotine dependence, chewing tobacco, uncomplicated; I10 Essential (primary) hypertension; E78.5 Hyperlipidemia, unspecified
CPT/HCPCS: 73552; 96372; 99284; J2270

== ENCOUNTER → 2023-02-04 13:09 | Outpatient (BNVA) | payer MEDICARE, SELFPAY | PROVIDERS: PCP Nurse Practitioner Family; Visit Provider Internal Medicine | DX: I48.91 Unspecified atrial fibrillation (principal); I10 Essential (primary) hypertension; E78.5 Hyperlipidemia, unspecified; I71.21 Aneurysm of the ascending aorta, without rupture; F17.220 Nicotine dependence, chewing tobacco, uncomplicated; Z79.01 Long term (current) use of anticoagulants | CPT/HCPCS: 99214 ==

== ENCOUNTER → 2023-08-11 14:50 | Outpatient (BNVA) | payer MEDICARE, SELFPAY | PROVIDERS: PCP Nurse Practitioner Family; Visit Provider Internal Medicine | DX: I48.91 Unspecified atrial fibrillation (principal); Z79.01 Long term (current) use of anticoagulants; I10 Essential (primary) hypertension; E78.5 Hyperlipidemia, unspecified; I71.21 Aneurysm of the ascending aorta, without rupture; F17.220 Nicotine dependence, chewing tobacco, uncomplicated | CPT/HCPCS: 99214 ==

== ENCOUNTER → 2023-08-27 12:46 | Outpatient (BNVA) | payer MEDICARE, SELFPAY | PROVIDERS: PCP Nurse Practitioner Family; Visit Provider Nurse Practitioner Family | DX: D48.5 Neoplasm of uncertain behavior of skin (principal); L57.0 Actinic keratosis; L82.1 Other seborrheic keratosis; L57.8 Other skin changes due to chronic exposure to nonionizing radiation; D22.62 Melanocytic nevi of left upper limb, including shoulder; L81.4 Other melanin hyperpigmentation | CPT/HCPCS: 11102; 17000; 99203 ==

== ENCOUNTER → 2023-10-07 09:33 | Outpatient (BNVA) | payer MEDICARE, SELFPAY | PROVIDERS: PCP Nurse Practitioner Family; Visit Provider Dermatology | DX: C44.41 Basal cell carcinoma of skin of scalp and neck (principal); C44.319 Basal cell carcinoma of skin of other parts of face | CPT/HCPCS: 12042; 12052; 17311 ==

== ENCOUNTER 2023-12-15 15:41 | Outpatient (CLI) | payer MEDICARE, SELFPAY ==
--- NOTE | 2023-12-15 15:45 | CTR_ITS ---
PROCEDURE INFORMATION: Exam: CT Head Without And With Contrast Exam date and time: 12/15/2023 4:09 PM Age: 68 years old Clinical indication: Mass, lump, or localized swelling; Face; Patient HX: Left eye swelling 2 weekends ago and then again this weekend; Additional info: Disorders of eye and adnexa TECHNIQUE: Imaging protocol: Computed tomography of the head without and with contrast. Radiation optimization: All CT scans at this facility use at least one of these dose optimization techniques: automated exposure control; mA and/or kV adjustment per patient size (includes targeted exams where dose is matched to clinical indication); or iterative reconstruction. Contrast material: OMNIPAQUE 350; Contrast volume: 100 ml; Contrast route: INTRAVENOUS (IV); COMPARISON: CT neck w con* [id number] 05/04/2018 9:20 AM RADIATION DOSE METRICS: Total DLP (mGy-cm): 2089.78 FINDINGS: Brain: No evidence of intra-axial or extra-axial hemorrhage. No evidence of abnormal enhancement. No mass effect or midline shift. Rooney-white differentiation is maintained. Basilar cisterns are patent. Cerebral ventricles: No hydrocephalus. Paranasal sinuses: There is complete opacification of the left frontal sinus containing complex material with bony expansion and cortical thinning/resorption. There is a focal 1 cm defect of the inferior aspect of the sinus with protrusion of a soft tissue component into the superior orbit (image 28 of series 12). There has an additional smaller defect along the posterior aspect of the sinus with possible intracranial protrusion of the contents (image 31 of series 12 and image 12 of series 4). There is opacification of the left anterior ethmoid air cells. Small right maxillary sinus fluid level noted. Mastoid air cells: The mastoids and middle ears are clear. CT/CT head wo/w con [id number] IMPRESSION: 1. 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 ENT evaluation is recommended. 2. Bony resorption of the inner table of the frontal bone along the posterior aspect of the left frontal sinus with possible intracranial protrusion of the mucocele. Follow-up MRI of the brain with/without contrast is recommended.
[2023-12-15 16:07] LABS: Blood Urea Nitrogen 25 mg/dL (8-23); Glomerular Filtration Rate 60.2 mL/min (90-130)
[2023-12-15] MEDS: iohexol 350 mg/mL 500 mL Btl (per mL) IV (16:14)
== END 2023-12-15 15:42 | disposition home or self-care (01) ==
LOC: RAD 15:41
PROVIDERS: Radiology Diagnostic Radiology; PCP Nurse Practitioner Family; Visit Provider Student in an Organized Health Care Education/Training Program
DX: J34.1 Cyst and mucocele of nose and nasal sinus (principal); M88.0 Osteitis deformans of skull; H05.89 Other disorders of orbit
CPT/HCPCS: 70470; 82565; 84520; Q9967

== ENCOUNTER 2023-12-20 16:57 | Emergency (ER) | payer MEDICARE, SELFPAY ==
[2023-12-20 17:10] VITALS: BP 130/71; PULSE 61; RESP 16; TEMP 36.9; O2SAT 96
[2023-12-20] MEDS: predniSONE 20 mg Tablet 60 MG PO (19:02)
[2023-12-20] MEDS: diphenhydrAMINE 50 mg Capsule PO (19:02)
--- NOTE | 2023-12-20 19:20 | ED_ITS ---
HPI - Eye Problem General: Chief complaint: Eye Problems Stated complaint: left eye swollen Time Seen by Provider: 12/20/23 18:36 Source: patient Mode of arrival: ambulatory Limitations: no limitations History of Present Illness: 68-year-old male states he had recurrent swelling to his left eyelid over the last 3 weeks he said he had seen ENT and had a CT scan last week but has not had the results he been on steroids and the swelling went down but is up again he denies any pain denies any fever denies any change in his vision. Associated symptoms: Denies fever(s), headache(s), nausea, neck pain or vomiting Review of Systems Const: Denies: fever(s), chills, body aches or change in appetite Eyes: Denies: blurry vision or eye discomfort ENMT: Denies: throat pain or dental pain Card: Denies: chest pain Resp: Denies: dyspnea GI: Denies: abdominal pain, nausea, vomiting or diarrhea Musc: Denies: neck pain or back pain Skin/Breast: Denies: rash Neuro: Denies: headache(s) PFSH ED PFSH: Medical History Arthropathy of right knee Hyperlipidemia HTN (hypertension) Asthma Prostatitis Ureteral calculus Lower urinary tract symptoms (LUTS) Surgical History History of back surgery S/P right rotator cuff repair MASSIVE H/O arthroscopy of right knee History of back surgery Hx of repair of rotator cuff Family History Mother CAD (coronary artery disease) Father , at age 87 No problems noted. Other Hypercholesteremia Social History Smoking and tobacco/nicotine status: current every day tobacco/nicotine user smokeless tobacco Smokeless tobacco user: chewing tobacco Alcohol intake: current Alcohol intake frequency: holidays/special occasions only Alcohol type: beer Substance/Drug Use: never Marital status: Current occupational status: retired Physical Exam Const: COMMON NORMALS: no acute distress, patient oriented x3 and healthy yovany earing HENMT: COMMON NORMALS: normocephalic and atraumatic HEAD & SCALP: normocephalic and atraumatic Eye: COMMON NORMALS: Equal, round and reactive pupils present and EOMs intact bilaterally PUPIL: Yes Equal, round and reactive pupils present OTHER: Swelling noted to left eyelid he has full range of motion of his eyes with no pain no erythema to the cornea Neck/C-Spine: COMMON NORMALS: full ROM and supple Chest: COMMONS NORMALS: normal inspection of the chest Resp: COMMON NORMALS: normal respiratory effort Extremity: COMMON NORMALS: normal to inspection and full ROM Neuro: COMMON NORMALS: patient oriented x3, moves all extremities and no focal motor deficits Psych: COMMON NORMALS: mental status grossly normal, Normal thought process present and cooperative THOUGHT PROCESS: Normal thought process present Skin: COMMON NORMALS: no rashes or lesions noted and no wounds GENERAL SKIN EXAM: no rashes or lesions noted Course Vital Signs: Vital signs: Vital Signs Temperature 98.5 F 12/20/23 17:10 Pulse Rate 61 12/20/23 17:10 Respiratory Rate 16 12/20/23 17:10 Blood Pressure 130/71 12/20/23 17:10 Pulse Oximetry 96 12/20/23 17:10 MDM - Eye Problem Medical Decision Making Patient presents for swelling left eyelid I did review his CT scan he has a mucocele of the left orbit I have spoken to ENT Dr. Andrade inform patient he is to follow-up with Dr. Mccracken we will place him on Augmentin along with steroids he is return if worsening he understands agrees to plan Medical Records I reviewed the patient's medical records. No radiology studies performed this visit Discharge Plan Discharge Patient Disposition: Home Clinical Impression: Swelling of eyelid, Mucocele of orbit Condition: Stable Prescriptions: New prednisone 50 mg tablet 50 mg PO DAILY Qty: 5 0RF Augmentin 500-125 mg tablet 1 tab PO BID Qty: 14 0RF No Action multivitamin Tablet 1 tab PO DAILY cetirizine 10 mg capsule 10 mg PO DAILY montelukast [Singulair] 10 mg tablet 10 mg PO DAILY amlodipine 10 mg tablet 10 mg PO DAILY atorvastatin 10 mg tablet 10 mg PO DAILY fluticasone propion-salmeterol [Advair Diskus] 250-50 mcg/dose blister with device 1 inh INHALATION BID monetasone 1 mg nasal BID PRN albuterol sulfate [Proventil HFA] 90 mcg/actuation HFA aerosol inhaler 2 puff inhalation Q6H PRN (Reason: Shortness Of Breath) Eliquis 5 mg tablet 5 mg PO BID Qty: 60 3RF meloxicam 7.5 mg tablet 7.5 mg PO DAILY amiodarone 200 mg tablet 200 mg PO DAILY Qty: 90 3RF hydrochlorothiazide 12.5 mg tablet 12.5 mg PO DAILY Qty: 90 3RF ciprofloxacin HCl 500 mg tablet 500 mg PO BID Qty: 60 6RF metoprolol tartrate 25 mg tablet 12.5 mg PO BID Qty: 180 3RF oxycodone 5 mg tablet 5 mg PO Q4H PRN (Reason: pain) Qty: 10 0RF Discharge Orders: Discharge ED (Routine); Ordered 12/20/23 Ordered By: Joanne Hirsch Referrals: Vivian Harper NP [Primary Care Provider] - 1-3 days Arturo Beauchamp MD [Physician] - 1-3 days Discharge Diet: Advance as tolerated Discharge Activity: Resume usual activity Patient Instructions: Eyelid Swelling (ED) Coding 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
== END 2023-12-20 19:48 | disposition home or self-care (01) ==
PROVIDERS: Emergency Provider Emergency Medicine; PCP Nurse Practitioner Family
DX: M79.89 Other specified soft tissue disorders (principal); H04.432 Chronic lacrimal mucocele of left lacrimal passage; Z79.01 Long term (current) use of anticoagulants; F17.220 Nicotine dependence, chewing tobacco, uncomplicated; E78.5 Hyperlipidemia, unspecified; I10 Essential (primary) hypertension
CPT/HCPCS: 99283; J7512; Q0163

== ENCOUNTER 2023-12-25 08:02 | Outpatient (CLI) | payer MEDICARE, SELFPAY ==
--- NOTE | 2023-12-25 08:11 | CT_ITS ---
WS: [id number] CT SINUSES TECHNIQUE: Noncontrast CT of the paranasal sinuses with coronal and sagittal reformatted images. CLINICAL INFORMATION: CYST MUCOCELE OF NOSE NASAL SINUS COMPARISON: None. DLP: 364.[address] scans at [facility] use at least one of these dose optimization techniques: automated e xposure control; mA and/or kV adjustment per patient size (includes targeted exams where dose is matc hed to clinical indication); or iterative reconstruction. FINDINGS: Expansile lesion in the LEFT frontal sinus most compatible with mucocele. Associated bony erosion wit h erosion of the adjacent medial superior orbital rim with slight involvement of the adjacent lamina papyracea. Slight protrusion into the adjacent orbit with contact of the superior oblique. Opacificat ion of the LEFT frontal ethmoidal recess. Erosion of the inner table calvarium overlying the LEFT fro ntal lobe at the posterior wall of the frontal sinus. No visualized significant mass effect. This yovany ears to slightly contact the dura and frontal lobe. This is best appreciated on the sagittal imaging. Increasing soft tissue edema overlying the LEFT superior orbit contiguous with the area of bony dehis cence along the superior medial orbital rim. Recommend correlation for cellulitis. RIGHT frontal sinus is well aerated. Ethmoid air cells are otherwise well aerated. Bilateral maxillar y sinusitis LEFT greater than RIGHT with air-fluid levels and inspissated secretions. A few secretion s in the RIGHT sphenoid sinus. Sphenoid ostia appear patent. Mastoid air cells are well aerated. Normal posterior nasopharynx and parapharyngeal fat. CT/CT sinus wo con* [id number] IMPRESSION: 1. Expansile LEFT frontal sinus lesion likely mucocele with bony erosion. 2. Bony erosion of the superior medial orbital rim and adjacent lamina papyrac ea at the level of the frontal ethmoidal recess. Slight4 contact of the adjacen t superior oblique with slight extension to the orbital soft tissues. 3. Additional bony erosion of the posterior wall of the frontal sinus at the i nner table with slight intracranial extension and contact of the dura and front al lobe. No significant mass effect. This could be further evaluated with MRI t o assess for signal abnormality in the frontal lobe. 4. Soft tissue edema overlying the LEFT superior orbit. This is continuous wit h the mucocele in the area of orbital rim bony erosion. Recommend correlation f or infection and preseptal cellulitis. 5. Bilateral maxillary sinusitis with air-fluid levels LEFT greater than RIGHT . 6. Partial opacification of the LEFT frontal ethmoidal recess with mild mucosa l thickening LEFT ethmoid air cells. 7. A few secretions in the RIGHT sphenoid sinus. 8. Mastoid air cells are well aerated.
--- NOTE | 2023-12-25 13:30 | MR_ITS ---
WS: [id number] MRI HEAD WITH CONTRAST TECHNIQUE: Sagittal T1, T2 axial, T2 axial FLAIR, axial susceptibility weighted imaging, axial diffus ion weighted images, and coronal T2 images were obtained. Pre and post-T1 axial and post T1 coronal i mages. ADC and FSPGR images. CLINICAL INFORMATION: CYST MUCOCELE OF NOSE NASAL SINUS COMPARISON: CT earlier today FINDINGS: Again seen is the LEFT frontal sinus mucocele with slight involvement of the LEFT frontal ethmoidal r ecess. Thick peripheral enhancement involving the LEFT frontal sinus mucocele compatible with a mucop yocele. Erosion of the posterior wall frontal sinus with slight underlying enhancement of the dura co mpatible with meningitis. No edema in the underlying LEFT frontal lobe. No evidence of subdural empye ma. Anterior extension of the mucopyocele into the supraorbital soft tissues with small associated hernandez praorbital soft tissue collection measuring approximately 1.4 x 1.1 cm Again seen is the bony erosion involving the superior medial LEFT orbit with slight extension into th e LEFT orbit with contact of the superior oblique. No significant mass effect on the globe. Maxillary sinusitis. Mucosal thickening in the LEFT ethmoid air cells. No evidence of restricted diffusion to suggest acute ischemia. No hemosiderin on the susceptibility w eighted images. Normal optic chiasm and pituitary infundibulum. Mild small vessel changes. Moderate p arenchymal volume loss. Few tiny chronic lacunar infarcts in the cerebellum. Normal vascular flow voi ds at the skull base. LEFT greater than RIGHT maxillary sinusitis. Mastoid air cells are well aerated . MR/MR head wo/w con [id number] IMPRESSION: 1. Ruptured LEFT frontoethmoidal mucocele with thick peripheral enhancement co mpatible with mucopyocele. 2. Extension into the anterior supraorbital soft tissues with peripheral enhan cing mucopyocele components. Soft tissue collection measures 1.4 x 1.1 cm invol ving the supraorbital soft tissues 3. Erosion of the posterior wall LEFT frontal sinus with a small amount of und erlying dural enhancement compatible with meningitis. 4. Erosion of the superomedial LEFT orbit with contact of the superior oblique . No significant mass effect on the globe. 5. Maxillary sinusitis.
[2023-12-25] MEDS: gadobenate dimeglumine 20 mL vial IV (14:18)
== END 2023-12-25 08:03 | disposition home or self-care (01) ==
LOC: RAD 08:03
PROVIDERS: PCP Nurse Practitioner Family; Visit Provider Specialist
DX: J34.1 Cyst and mucocele of nose and nasal sinus (principal); J34.89 Other specified disorders of nose and nasal sinuses; J01.00 Acute maxillary sinusitis, unspecified; G31.89 Other specified degenerative diseases of nervous system
CPT/HCPCS: 70486; 70553; A9577

== ENCOUNTER → 2024-02-09 14:58 | Outpatient (BNVA) | payer MEDICARE, SELFPAY | PROVIDERS: PCP Nurse Practitioner Family; Visit Provider Internal Medicine | DX: I48.91 Unspecified atrial fibrillation (principal); I10 Essential (primary) hypertension; E78.5 Hyperlipidemia, unspecified; I71.21 Aneurysm of the ascending aorta, without rupture; Z72.0 Tobacco use; Z79.01 Long term (current) use of anticoagulants | CPT/HCPCS: 99214 ==

== ENCOUNTER → 2024-02-25 07:59 | Outpatient (BNVA) | payer MEDICARE, SELFPAY | PROVIDERS: PCP Nurse Practitioner Family; Visit Provider Nurse Practitioner Family | DX: L57.0 Actinic keratosis (principal); L82.1 Other seborrheic keratosis; L57.8 Other skin changes due to chronic exposure to nonionizing radiation; D22.62 Melanocytic nevi of left upper limb, including shoulder; L81.4 Other melanin hyperpigmentation | CPT/HCPCS: 17000; 99213 ==

== ENCOUNTER 2024-05-01 20:25 | Emergency (ER) | payer MEDICARE, SELFPAY ==
[2024-05-01 20:27] VITALS: BP 122/74; PULSE 55; RESP 18; TEMP 36.5; O2SAT 97; BMI 34.9
[2024-05-01] MEDS: fluorescein 1 mg Strip EYE-RIGHT (21:54)
--- NOTE | 2024-05-01 21:54 | PC.NURSE ---
visual acuity test 20/40 for left and right eye.
--- NOTE | 2024-05-01 22:48 | W.ED.EYEPROB ---
HPI - Eye Problem General: Chief complaint: Eye Problems Stated complaint: Right eye pain Time Seen by Provider: 05/01/24 21:09 History of Present Illness: Patient is a 68-year-old man that presents to our emergency department with complaints of right eye pain. Patient states that this evening he was outside when his eyes suddenly developed tenderness burning and tearing. Patient denies a sensation of foreign body in his eye. He is concerned that he may have a piece of metal in his eye since he was working with metal this morning. Related Data Home Medications Medication Instructions Recorded Confirmed amlodipine 10 mg tablet 10 mg PO DAILY 09/27/19 02/09/24 atorvastatin 10 mg tablet 10 mg PO DAILY 09/27/19 02/09/24 cetirizine 10 mg capsule 10 mg PO DAILY 09/27/19 02/09/24 fluticasone 250 mcg-salmeterol 50 1 inh inhalation BID 09/27/19 02/09/24 mcg/dose blistr powdr for inhalation (Advair Diskus) montelukast 10 mg tablet 10 mg PO DAILY 09/27/19 02/09/24 (Singulair) multivitamin 1 tab PO DAILY 09/27/19 02/09/24 albuterol sulfate 90 mcg/actuation 2 puff inhalation Q6H PRN 08/23/20 02/09/24 aerosol inhaler (Proventil HFA) Shortness Of Breath monetasone nasal BID PRN 07/04/21 02/09/24 meloxicam 7.5 mg tablet 7.5 mg PO DAILY 02/04/23 02/09/24 Previous Rx's Medication Instructions Recorded apixaban 5 mg tablet (Eliquis) 5 mg PO BID #60 tabs 08/23/20 ciprofloxacin HCl 500 mg tablet 500 mg PO BID #60 tabs 11/25/22 oxycodone 5 mg tablet 5 mg PO Q4H PRN pain #10 tabs 12/29/22 metoprolol tartrate 25 mg tablet 12.5 mg (1/2 x 25 mg) PO BID #180 06/23/23 tabs amiodarone 200 mg tablet 200 mg PO DAILY #90 tabs 08/11/23 hydrochlorothiazide 12.5 mg tablet 12.5 mg PO DAILY #90 tabs 08/11/23 amoxicillin 500 mg-potassium 1 tab PO BID #14 tabs 12/20/23 clavulanate 125 mg tablet (Augmentin) prednisone 50 mg tablet 50 mg PO DAILY #5 tabs 12/20/23 olopatadine 0.1 % eye drops 1 drp ophthalmic (eye) BID Right 05/01/24 #5 mL Allergies Allergy/AdvReac Type Severity Reaction Status Date / Time sulfamethoxazole Allergy Unknown Verified 02/09/24 15:20 [From Bactrim] trimethoprim [From Bactrim] Allergy Unknown Verified 02/09/24 15:20 Review of Systems General: Reports: 10 or more systems reviewed and unremarkable except in HPI and below PFSH ED PFSH: Medical History Arthropathy of right knee Hyperlipidemia HTN (hypertension) Asthma Prostatitis Ureteral calculus Lower urinary tract symptoms (LUTS) Surgical History History of back surgery S/P right rotator cuff repair MASSIVE H/O arthroscopy of right knee History of back surgery Hx of repair of rotator cuff Family History Mother CAD (coronary artery disease) Father , at age 87 No problems noted. Other Hypercholesteremia Social History Smoking and tobacco/nicotine status: current every day tobacco/nicotine user (chewing tabacco) smokeless tobacco Smokeless tobacco user: chewing tobacco Alcohol intake: current Alcohol intake frequency: holidays/special occasions only Alcohol type: beer Substance/Drug Use: never Marital status: Current occupational status: retired Physical Exam Eye: COMMON NORMALS: normal visual samayoa by confrontation GENERAL EYE: normal light reflex VISUAL ACUITY: Yes acuity normal (See nurses note) ALIGNMENT: Yes alignment normal PERIORBITAL: periorbital findings normal CONJUNCTIVA: Yes conjunctival abnormal positive right conjunctival icterus, conjunctival chemosis, conjunctival injection and discharge SCLERA: sclerae normal CORNEA: Yes fluorescein used DIRECT OPHTHALMOSCOPY: Yes normal light reflex SLIT LAMP EXAM: Yes slit lamp exam performed with fluorescein, Yes lids/lashes/lacrimal system Lids/lashes/lacrimal system details: normal appearing and Yes conjunctiva/sclera Conjunctiva/sclera details: diffuse conjunctiva injection and chemosis Course Vital Signs: Vital signs: Vital Signs Temperature 97.7 F 05/01/24 20:27 Pulse Rate 55 L 05/01/24 23:19 Respiratory Rate 18 05/01/24 20:27 Blood Pressure 119/67 05/01/24 23:19 Pulse Oximetry 97 05/01/24 23:19 Oxygen Delivery Me thod Room Air 05/01/24 20:27 MDM - Eye Problem Medical Decision Making Patient is a 68-year-old male that presents to the emergency department with right eye pain. Patient reports onset was abrupt this evening while outside. He denies any direct injury. Underwent eye evaluation that included pain control, fluorescein Wood's lamp and slit lamp. Patient also underwent visual acuity with nursing staff. Visual acuity is baseline. He does wear corrective lenses. He does not appear to have any foreign body but just global chemosis and injection. I had Dr. Quiroz take a look at the patient. He agrees and is recommending Patanol. Patient needs to follow-up with ophthalmology. We have provided him with Dr. Schreiber's contact but if he prefers to follow-up with another vallez filter operator that is fine. Patient is to return to the emergency department for new concerning or worsening symptoms No radiology studies performed this visit Discharge Plan Discharge Patient Disposition: Home Clinical Impression: Conjunctivitis Condition: Stable Prescriptions: New olopatadine 0.1 % drops 1 drp ophthalmic (eye) BID Qty: 5 0RF Rx Instructions: separate doses by at least 6-8 hours No Action multivitamin Tablet 1 tab PO DAILY cetirizine 10 mg capsule 10 mg PO DAILY montelukast [Singulair] 10 mg tablet 10 mg PO DAILY amlodipine 10 mg tablet 10 mg PO DAILY atorvastatin 10 mg tablet 10 mg PO DAILY fluticasone propion-salmeterol [Advair Diskus] 250-50 mcg/dose blister with device 1 inh INHALATION BID monetasone 1 mg nasal BID PRN albuterol sulfate [Proventil HFA] 90 mcg/actuation HFA aerosol inhaler 2 puff inhalation Q6H PRN (Reason: Shortness Of Breath) Eliquis 5 mg tablet 5 mg PO BID Qty: 60 3RF meloxicam 7.5 mg tablet 7.5 mg PO DAILY amiodarone 200 mg tablet 200 mg PO DAILY Qty: 90 3RF hydrochlorothiazide 12.5 mg tablet 12.5 mg PO DAILY Qty: 90 3RF ciprofloxacin HCl 500 mg tablet 500 mg PO BID Qty: 60 6RF metoprolol tartrate 25 mg tablet 12.5 mg PO BID Qty: 180 3RF oxycodone 5 mg tablet 5 mg PO Q4H PRN (Reason: pain) Qty: 10 0RF prednisone 50 mg tablet 50 mg PO DAILY Qty: 5 0RF Augmentin 500-125 mg tablet 1 tab PO BID Qty: 14 0RF Discharge Orders: Discharge ED (Routine); Ordered 05/01/24 Or[facility] By: [facility] Referrals: Vivian Harper NP [Primary Care Provider] - Loy León [Referring] - Discharge Diet: Advance as tolerated Discharge Activity: Resume usual activity Patient Instructions: Conjunctivitis (ED), Pain Management Activity Restrictions/Additional Instructions: Please call Dr. León or vallez filter operator of your choice on Friday. I would like you to have your eye rechecked. Take the medication as prescribed Emergency department for new concerning or worsening symptoms Coding Level of Care Code ED Clinical Program Coordinator for [employer]
--- NOTE | 2024-05-01 23:18 | PC.NURSE ---
prescription eye drops unavailable from [facility]. AGRONOMY ADVISOR notified and aware.
[2024-05-01 23:19] VITALS: BP 119/67; PULSE 55; O2SAT 97
== END 2024-05-01 23:20 | disposition home or self-care (01) ==
PROVIDERS: Emergency Provider Nurse Practitioner; PCP Nurse Practitioner Family
DX: H10.9 Unspecified conjunctivitis (principal); Z79.01 Long term (current) use of anticoagulants; E78.5 Hyperlipidemia, unspecified; I10 Essential (primary) hypertension; F17.220 Nicotine dependence, chewing tobacco, uncomplicated
CPT/HCPCS: 99283

== ENCOUNTER → 2024-09-03 07:55 | Outpatient (BNVA) | payer MEDICARE, SELFPAY | PROVIDERS: PCP Nurse Practitioner Family; Visit Provider Nurse Practitioner Family | DX: L72.0 Epidermal cyst (principal); L82.1 Other seborrheic keratosis; L57.8 Other skin changes due to chronic exposure to nonionizing radiation; L81.4 Other melanin hyperpigmentation; Z08 Encounter for follow-up examination after completed treatment for malignant neoplasm; Z85.828 Personal history of other malignant neoplasm of skin; D48.5 Neoplasm of uncertain behavior of skin; L57.0 Actinic keratosis | CPT/HCPCS: 11102; 17000; 99213 ==

== ENCOUNTER 2024-09-21 07:55 | Outpatient (CLI) | payer MEDICARE, SELFPAY ==
--- NOTE | 2024-09-21 08:00 | CT_ITS ---
WS: [id number] CTA THORACIC TECHNIQUE: Contrast enhanced CTA of the thoracic aorta with coronal and sagittal reformatted images and maximum intensity projection (MIP) images. CLINICAL INFORMATION: Thoracic aneurysm COMPARISON: 12/16/2022 DLP: 1018.[address] scans at [facility] use at least one of these dose optimization techniques: automated exposure control; mA and/or kV adjustment per patient size (includes targeted exams where dose is matched to clinical indication); or iterative reconstruction. FINDINGS: Stable dilatation ascending thoracic aorta measuring approximately 4.5 cm in maximum dimension unchanged since 12/16/2022. Aortic calcification. Coronary calcification. Proximal main pulmonary arteries are normal. Normal caliber descending thoracic aorta. Small esophageal hiatal hernia. Adrenal glands are normal. No mediastinal or hilar lymphadenopathy. No axillary lymphadenopathy. Celiac and SMA are patent in the upper abdomen. Splenic artery calcification. Few calcified granulomas. Mild thoracic curve. Moderate thoracic kyphosis. Ankylosis thoracic spine. CT/CT angio chest [id number] IMPRESSION: 1. Stable dilatation ascending thoracic aorta measuring 4.5 cm. 2. Aortic and coronary calcification. Cardiomegaly. 3. Small esophageal hiatal hernia. 4. No other significant changes compared to previous
[2024-09-21] MEDS: iohexol 350 mg/mL 500 mL Btl (per mL) IV (08:35)
== END 2024-09-21 07:56 | disposition home or self-care (01) ==
PROVIDERS: PCP Nurse Practitioner Family; Visit Provider Internal Medicine
DX: I71.20 Thoracic aortic aneurysm, without rupture, unspecified (principal); I70.0 Atherosclerosis of aorta; I25.10 Atherosclerotic heart disease of native coronary artery without angina pectoris; I51.7 Cardiomegaly; K44.9 Diaphragmatic hernia without obstruction or gangrene; I70.8 Atherosclerosis of other arteries; L92.9 Granulomatous disorder of the skin and subcutaneous tissue, unspecified; M43.8X4 Other specified deforming dorsopathies, thoracic region; M40.294 Other kyphosis, thoracic region; M43.24 Fusion of spine, thoracic region
CPT/HCPCS: 71275

== ENCOUNTER → 2024-11-08 13:04 | Outpatient (BNVA) | payer MEDICARE, SELFPAY | PROVIDERS: PCP Nurse Practitioner Family; Visit Provider Internal Medicine | DX: R53.83 Other fatigue (principal); I48.91 Unspecified atrial fibrillation; Z79.01 Long term (current) use of anticoagulants; I10 Essential (primary) hypertension; E78.5 Hyperlipidemia, unspecified; I71.21 Aneurysm of the ascending aorta, without rupture; Z87.891 Personal history of nicotine dependence | CPT/HCPCS: 99214 ==

== ENCOUNTER → 2025-03-21 08:24 | Outpatient (BNVA) | payer MEDICARE, SELFPAY | PROVIDERS: PCP Nurse Practitioner Family; Visit Provider Nurse Practitioner Family | DX: L72.0 Epidermal cyst (principal); L82.1 Other seborrheic keratosis; L57.8 Other skin changes due to chronic exposure to nonionizing radiation; L81.4 Other melanin hyperpigmentation; Z08 Encounter for follow-up examination after completed treatment for malignant neoplasm | CPT/HCPCS: 17000; 99213 ==